=== PATIENT | female | born 1930 | race African-American/Black ===

== ENCOUNTER 2018-01-22 10:46 | Inpatient (IN) | payer MEDICARE ==
[~2018-01-22] VITALS: Ht 162.6 cm; Wt 93.9 kg
[2018-01-22] MEDS ORDERED: UNOBMED (11:02)
[2018-01-22 11:05] VITALS: BP 153/45
--- NOTE | 2018-01-22 11:11 | Emergency Room Report ---
History of Present Illness General Chief Complaint: Syncope Source: Patient Present Illness HPI Patient presents with complaints of episode of lightheadedness and dizziness Feeling near syncopal Denies any chest pain denies any back pain Patient reports that she had previous injury and she has not been able to ambulate She does have help who was at a house To help was already at the house today however after leaving patient was having increased discomfort moving with her walker Also had another episode of lightheadedness Denies any fevers denies any chest pain Patient presents by paramedics Allergies: Coded Allergies: No Known Allergies (Unverified , 01/22/18) Patient History Past Medical History: see triage record Pertinent Family History: none Now: No Reviewed Nursing Documentation: PMH: Agreed; PSxH: Agreed Nursing Documentation-PMH Hx Cardiac Problems: Yes - HF, kidney problems, high cholesterol Hx Hypertension: Yes Review of Systems All Other Systems: negative except mentioned in HPI Physical Exam Vital Signs Date Time Temp Pulse Resp B/P (MAP) Pulse Ox O2 Delivery O2 Flow Rate FiO2 01/22/18 10:47 98.1 80 16 153/45 98 Room Air Sp02 EP Interpretation: reviewed, normal General Appearance: no apparent distress Head: normocephalic, atraumatic Eyes: bilateral eye PERRL, bilateral eye EOMI ENT: hearing grossly normal, normal pharynx Neck: full range of motion, supple Respiratory: chest non-tender, lungs clear Cardiovascular #1: regular rate, rhythm Gastrointestinal: non tender, soft, no mass Musculoskeletal: other - Patient is not able to bear weight, however moving both feet equally, sensory is intact Neurologic: alert, oriented x3, responsive Skin: normal color, no rash Lymphatic: no adenopathy Medical Decision Making Diagnostic Impression: Primary Impression: Near syncope Additional Impressions: UTI (urinary tract infection) Weakness ER Course Patient is a fairly complex patient with multiple differential to consideration including but not limited to cardiac cardiopulmonary and vascular emergencies Patient's urine sample does show bacteria patient is treated for this thus far EKG and other blood work appropriate Given the patient's comorbidities and presentation will require further inpatient care Labs Test 01/22/18 11:23 01/22/18 11:58 White Blood Count 5.1 K/UL (4.8-10.8) Red Blood Count 4.26 M/UL (4.20-5.40) Hemoglobin 11.1 G/DL (12.0-16.0) Hematocrit 34.8 % (37.0-47.0) Mean Corpuscular Volume 82 FL (80-99) Mean Corpuscular Hemoglobin 26.2 PG (27.0-31.0) Mean Corpuscular Hemoglobin Concent 32.1 G/DL (32.0-36.0) Red Cell Distribution Width 13.9 % (11.6-14.8) Platelet Count 159 K/UL (150-450) Mean Platelet Volume 6.9 FL (6.5-10.1) Neutrophils (%) (Auto) 62.3 % (45.0-75.0) Lymphocytes (%) (Auto) 25.1 % (20.0-45.0) Monocytes (%) (Auto) 7.2 % (1.0-10.0) Eosinophils (%) (Auto) 4.4 % (0.0-3.0) Basophils (%) (Auto) 1.1 % (0.0-2.0) Sodium Level 142 MMOL/L (136-145) Potassium Level 4.7 MMOL/L (3.5-5.1) Chloride Level 109 MMOL/L (98-107) Carbon Dioxide Level 21 MMOL/L (21-32) Anion Gap 12 mmol/L (5-15) Blood Urea Nitrogen 31 mg/dL (7-18) Creatinine 1.4 MG/DL (0.55-1.30) Estimat Glomerular Filtration Rate mL/min (>60) Glucose Level 109 MG/DL (74-106) Calcium Level 8.3 MG/DL (8.5-10.1) Total Bilirubin 0.4 MG/DL (0.2-1.0) Aspartate Amino Transf (AST/SGOT) 24 U/L (15-37) Alanine Aminotransferase (ALT/SGPT) 9 U/L (12-78) Alkaline Phosphatase 75 U/L (46-116) Total Creatine Kinase 51 U/L (26-308) Creatine Kinase MB < 0.5 NG/ML (0.0-3.6) Creatine Kinase MB Relative Index 0.9 Troponin I 0.006 ng/mL (0.000-0.056) Pro-B-Type Natriuretic Peptide 2455 pg/mL (0-125) Total Protein 6.9 G/DL (6.4-8.2) Albumin 2.6 G/DL (3.4-5.0) Globulin 4.3 g/dL Albumin/Globulin Ratio 0.6 (1.0-2.7) Urine Color Pale yellow Urine Appearance Clear Urine pH 6 (4.5-8.0) Urine Specific [place] 1.010 (1.005-1.035) Urine Protein Negative (NEGATIVE) Urine Glucose (UA) Negative (NEGATIVE) Urine Ketones 1+ (NEGATIVE) Urine Blood 4+ (NEGATIVE) Urine Nitrite Negative (NEGATIVE) Urine Bilirubin Negative (NEGATIVE) Urine Urobilinogen Normal MG/DL (0.0-1.0) Urine Leukocyte Esterase 2+ (NEGATIVE) Urine RBC Tntc /HPF (0 - 2) Urine WBC 10-15 /HPF (0 - 2) Urine Squamous Epithelial Cells Moderate /LPF (NONE/OCC) Urine Bacteria Few /HPF (NONE) EKG Diagnostic Results Rate: normal Rhythm: NSR ST Segments: no acute changes Rhythm Strip Diag. Results EP Interpretation: yes Rate: 77 Rhythm: NSR, no PVC's, no ectopy Chest X-Ray Diagnostic Results Chest X-Ray Diagnostic Results : Chest X-Ray Ordered: Yes # of Views/Limited/Complete: 1 View Indication: Chest Pain EP Interpretation: Yes Interpretation: no consolidation, no effusion, no pneumothorax Impression: No acute disease Electronically Signed by: Scarlett Saxena DO Last Vital Signs Date Time Temp Pulse Resp B/P (MAP) Pulse Ox O2 Delivery O2 Flow Rate FiO2 01/22/18 11:05 98.1 80 16 153/45 98 Room Air Status: improved Disposition: ADMITTED INPATIENT Condition: Serious Scarlett Saxena DO Jan 22, 2018 11:11
[2018-01-22 11:34] LABS: BASOPHILS % (AUTO) 1.1 % (0.0-2.0); EOSINOPHILS % (AUTO) 4.4 % (0.0-3.0); HEMATOCRIT 34.8 % (37.0-47.0); HEMOGLOBIN 11.1 G/DL (12.0-16.0); LYMPHOCYTES % (AUTO) 25.1 % (20.0-45.0); MEAN CORPUSCULAR VOLUME 82 FL (80-99); MONOCYTES % (AUTO) 7.2 % (1.0-10.0); NEUTROPHILS % (AUTO) 62.3 % (45.0-75.0); PLATELET COUNT 159 K/UL (150-450); RED BLOOD COUNT 4.26 M/UL (4.20-5.40); RED CELL DISTRIBUTION WIDTH 13.9 % (11.6-14.8); WHITE BLOOD COUNT 5.1 K/UL (4.8-10.8)
[2018-01-22 11:44] LABS: ANION GAP 12 mmol/L (5-15); BLOOD UREA NITROGEN 31 mg/dL (7-18); CALCIUM 8.3 MG/DL (8.5-10.1); CARBON DIOXIDE 21 MMOL/L (21-32); CHLORIDE 109 MMOL/L (98-107); CREATININE 1.4 MG/DL (0.55-1.30); POTASSIUM 4.7 MMOL/L (3.5-5.1); SODIUM 142 MMOL/L (136-145)
[2018-01-22 11:57] LABS: ALANINE AMINOTRANSFERASE 9 U/L (12-78); ALBUMIN 2.6 G/DL (3.4-5.0); ALBUMIN/GLOBULIN RATIO 0.6 (1.0-2.7); ALKALINE PHOSPHATASE 75 U/L (46-116); ASPARTATE AMINO TRANSFERASE 24 U/L (15-37); BILIRUBIN,TOTAL 0.4 MG/DL (0.2-1.0); CKMB < 0.5 NG/ML (0.0-3.6); CREATINE KINASE 51 U/L (26-308)
--- NOTE | 2018-01-22 12:10 | Diagnostic Imaging Report ---
Indication: Chest pain Comparison: None A single view chest radiograph was obtained. Findings: No definite infiltrate or pulmonary vascular congestion identified. The heart is enlarged. The aorta is mildly enlarged consistent with atherosclerotic vascular disease. The bones are osteopenic. Impression: No acute disease
[2018-01-22 12:20] LABS: BILIRUBIN, URINE NEGATIVE (NEGATIVE); GLUCOSE, URINE (UA) NEGATIVE (NEGATIVE); KETONES,URINE 1+ (NEGATIVE); LEUKOCYTE ESTERASE ,URINE 2+ (NEGATIVE); NITRITE,URINE NEGATIVE (NEGATIVE)
[2018-01-22 12:21] LABS: APPEARANCE,URINE CLEAR; COLOR,URINE PALE YELLOW; PH,URINE 6 (4.5-8.0); PROTEIN,URINE NEGATIVE (NEGATIVE); UROBILINOGEN,URINE NORMAL MG/DL (0.0-1.0)
[2018-01-22] MEDS ORDERED: cefTRIAXone 1 GM in D5W 55 ML IVPB ONE (13:15)
[2018-01-22 13:55] VITALS: BP 153/50
[2018-01-22 15:47] VITALS: BP 130/45
[2018-01-22] MEDS ORDERED: traMADol 50mg tab ORAL PRN (17:09)
--- NOTE | 2018-01-22 18:18 | Cardiology Progress Note ---
Assessment/Plan Assessment/Plan The patient is seen and examined, full cardiology consult report is dictated. Objective Last 24 Hour Vital Signs Date Time Temp Pulse Resp B/P (MAP) Pulse Ox O2 Delivery O2 Flow Rate FiO2 01/22/18 16:00 57 01/22/18 15:47 97.0 60 20 130/45 (73) 100 01/22/18 14:51 Room Air 01/22/18 14:38 98.1 65 16 153/50 99 Room Air 01/22/18 13:55 98.1 65 16 153/50 99 Room Air 01/22/18 11:05 98.1 80 16 153/45 98 Room Air 01/22/18 11:02 80 16 Room Air 01/22/18 10:47 98.1 80 16 153/45 98 Room Air Laboratory Tests Test 01/22/18 11:23 01/22/18 11:58 White Blood Count 5.1 K/UL (4.8-10.8) Red Blood Count 4.26 M/UL (4.20-5.40) Hemoglobin 11.1 G/DL (12.0-16.0) L Hematocrit 34.8 % (37.0-47.0) L Mean Corpuscular Volume 82 FL (80-99) Mean Corpuscular Hemoglobin 26.2 PG (27.0-31.0) L Mean Corpuscular Hemoglobin Concent 32.1 G/DL (32.0-36.0) Red Cell Distribution Width 13.9 % (11.6-14.8) Platelet Count 159 K/UL (150-450) Mean Platelet Volume 6.9 FL (6.5-10.1) Neutrophils (%) (Auto) 62.3 % (45.0-75.0) Lymphocytes (%) (Auto) 25.1 % (20.0-45.0) Monocytes (%) (Auto) 7.2 % (1.0-10.0) Eosinophils (%) (Auto) 4.4 % (0.0-3.0) H Basophils (%) (Auto) 1.1 % (0.0-2.0) Sodium Level 142 MMOL/L (136-145) Potassium Level 4.7 MMOL/L (3.5-5.1) Chloride Level 109 MMOL/L (98-107) H Carbon Dioxide Level 21 MMOL/L (21-32) Anion Gap 12 mmol/L (5-15) Blood Urea Nitrogen 31 mg/dL (7-18) H Creatinine 1.4 MG/DL (0.55-1.30) H Estimat Glomerular Filtration Rate mL/min (>60) Glucose Level 109 MG/DL (74-106) H Calcium Level 8.3 MG/DL (8.5-10.1) L Total Bilirubin 0.4 MG/DL (0.2-1.0) Aspartate Amino Transf (AST/SGOT) 24 U/L (15-37) Alanine Aminotransferase (ALT/SGPT) 9 U/L (12-78) L Alkaline Phosphatase 75 U/L (46-116) Total Creatine Kinase 51 U/L (26-308) Creatine Kinase MB < 0.5 NG/ML (0.0-3.6) Creatine Kinase MB Relative Index 0.9 Troponin I 0.006 ng/mL (0.000-0.056) Pro-B-Type Natriuretic Peptide 2455 pg/mL (0-125) H Total Protein 6.9 G/DL (6.4-8.2) Albumin 2.6 G/DL (3.4-5.0) L Globulin 4.3 g/dL Albumin/Globulin Ratio 0.6 (1.0-2.7) L Urine Color Pale yellow Urine Appearance Clear Urine pH 6 (4.5-8.0) Urine Specific [place] 1.010 (1.005-1.035) Urine Protein Negative (NEGATIVE) Urine Glucose (UA) Negative (NEGATIVE) Urine Ketones 1+ (NEGATIVE) H Urine Blood 4+ (NEGATIVE) H Urine Nitrite Negative (NEGATIVE) Urine Bilirubin Negative (NEGATIVE) Urine Urobilinogen Normal MG/DL (0.0-1.0) Urine Leukocyte Esterase 2+ (NEGATIVE) H Urine RBC Tntc /HPF (0 - 2) H Urine WBC 10-15 /HPF (0 - 2) H Urine Squamous Epithelial Cells Moderate /LPF (NONE/OCC) H Urine Bacteria Few /HPF (NONE) Christ Matthews MD Jan 22, 2018 18:18
[2018-01-22] MEDS ORDERED: Montelukast 10mg tablet ORAL SCH (18:30)
[2018-01-22] MEDS ORDERED: MONTELUKAST SOD10 MG ORAL (19:18)
[2018-01-22] MEDS ORDERED: ASPIRIN81 M3 PO (19:18)
[2018-01-22] MEDS ORDERED: TRAMADOL HCL50 MG ORAL (19:18)
[2018-01-22] MEDS ORDERED: OMEPRAZOLE20 M2 ORAL (19:18)
[2018-01-22 20:00] VITALS: BP 105/37
--- NOTE | 2018-01-22 21:15 | Consultation ---
DATE OF CONSULTATION: 01/22/2018 CARDIOLOGY CONSULTATION CONSULTING PHYSICIAN: Christ Matthews M.D. REFERRING PHYSICIAN: Aaron Ocampo M.D. REASON FOR CONSULTATION: Management of near-syncope episode. HISTORY OF PRESENT ILLNESS: The patient is a very delightful 87-year-old lady, who presents to the hospital after she feels dizzy and lightheaded and continue: 1. Nitroglycerin tablet recommended by a nurse, which bottomed down her blood pressure and had a blackout episode. At the time of arrival to this hospital, she denied any chest pain or shortness of breath. She normally walks at home with a walker. She was told 7 years ago by another banquet lead that she has had congestive heart failure. 2. She claims that she used to take furosemide in the past. She denies any coronary artery disease or cardiac arrhythmias. PAST MEDICAL HISTORY: 1. History of congestive heart failure. 2. History of gastroesophageal reflux. 3. History of hyperlipidemia. 4. History of chronic kidney disease. 5. History of hypertension. ALLERGIES: No known drug allergies. MEDICATIONS: Occasional omeprazole, nitroglycerin tablet as needed, and used to take furosemide in the past, currently not taking any medication. List of medications, none. FAMILY HISTORY: No premature coronary artery disease in the first-degree relatives. SOCIAL HISTORY: Denies any tobacco, alcohol, or illicit drug use. REVIEW OF SYSTEMS: HEENT: Denies any headache, but had lightheadedness and dizziness. CONSTITUTIONAL: Generalized weakness, but no fever, chills, or night sweats. CARDIOVASCULAR: Denies any chest pain, shortness of breath, PND, orthopnea, leg swelling, or palpitation. She had a near syncopal event. PULMONARY: Denies any cough, hemoptysis, or wheezing. GASTROINTESTINAL: Denies any nausea, vomiting, diarrhea, constipation, abdominal pain, or GI bleed. GENITOURINARY: Denies any hematuria, dysuria, or incontinence. NEUROLOGY: Denies any motor dysfunction, signs of lateralization, sensory deficit, or altered speech. PHYSICAL EXAMINATION: VITAL SIGNS: Blood pressure at the time of arrival to the hospital was blood pressure 153/45, pulse 80, respirations 16, O2 saturation 98% on room air, and temperature 98.1 degrees Fahrenheit. GENERAL: The patient is a very unfortunate 87-year-old lady, in no apparent respiratory distress. Alert and oriented x4. HEENT: Atraumatic and normocephalic. Anicteric. Pupils are equal, round, and reactive to light and accommodation. Extraocular muscles intact. NECK: JVP less than 5 cm. No carotid bruit. Carotid upstroke is 2+ bilaterally. CARDIOVASCULAR: Normal S1 and S2, irregular at times. A 2/6 midsystolic murmur at the left sternal border. PMI is at fourth intercostal space in the midclavicular line. LUNGS: Clear to auscultation bilaterally. ABDOMEN: Soft, nontender, and nondistended. No hepatosplenomegaly. Positive bowel sounds. EXTREMITIES: No evidence of edema, clubbing, or cyanosis. There is 1+ bilateral lower extremity edema. LABORATORY FINDINGS: WBC 5.1, hemoglobin 11.1, hematocrit of 34.8, and platelet count is 159,000. Sodium 142, potassium is 4.7, chloride 109, bicarbonate 21, BUN 31, creatinine 1.4, glucose 109, calcium is 8.3, troponin I 0.006, and proBNP was 2455. DIAGNOSTIC DATA: Chest x-ray showed no acute cardiopulmonary disease. A 12-lead electrocardiogram shows sinus rhythm at a rate of 70 with arm lead reversal. No acute ST and T-wave abnormalities and borderline QT prolongation. ASSESSMENT AND PLAN: The is a very unfortunate 87-year-old lady, was seen in Cardiology consultation at request of Dr. Ocampo. 1. Near syncope. It could be a combination of factors, obviously nitroglycerin had some role in dropping her blood pressure. 2. Vasovagal or hypovolemia, could also be responsible for her presyncope. A 12-lead electrocardiogram does not show any acute ST or T-wave abnormalities. Laboratory finding also mostly confirmation of her prerenal azotemia and possible hypovolemia with a BUN/creatinine ratio above 20. Given the fact that the beta-natriuretic peptide is elevated. The patient was started on furosemide. We will ultimately need 2D echocardiography for assessment of LV systolic and diastolic function to address hemodynamics more efficiently. 3. History of hypertension. I would believe that the patient will probably benefit from a combination of hydrochlorothiazide and triamterene. 4. History of chronic kidney disease. I will switch the patient to thiazide diuretic from the loop diuretic and watch her creatinine. This will be done once the patient's echocardiography rules out heart failure. I would like to thank, Dr. Ocampo, for allowing me to participate in the care of this patient. Christ Matthews M.D. DR: RADHA JOB#: [id number] CC:
--- NOTE | 2018-01-22 23:06 | Consultation ---
History of Present Illness General Date patient seen: Jan 22, 2018 Chief Complaint: Syncope Present Illness HPI 87-year-old female, who presents to the hospital after she feels dizzy and lightheaded the pt has anxiety due to stressors at home. the pts daughter and grandson and the pt stated that she feels that she is not comfortable in her own house. the pt at times is worried about her future. the pt was seen by sw. the pt has mild depression Allergies: Coded Allergies: No Known Allergies (Unverified , 01/22/18) Medication History Scheduled Aspirin (Aspirin), 81 MG PO DAILY, (Reported) Montelukast Sodium* (Montelukast Sodium*), 10 MG ORAL DAILY, (Reported) Omeprazole (Omeprazole), 20 MG ORAL DAILY, (Reported) Scheduled PRN Tramadol Hcl* (Ultram*), 50 MG ORAL Q8HR PRN for For Pain, (Reported) Miscellaneous Medications Unable to Obtain Medications (Unable To Obtain Meds), (Reported) Patient History History Provided By: Patient, Medical Record, PMD Healthcare decision maker Resuscitation status Full Code Advanced Directive on File Past Medical/Surgical History Past Medical/Surgical History: (1) Weakness (2) UTI (urinary tract infection) (3) Near syncope (4) ESRD (end stage renal disease) on dialysis (5) PVD (peripheral vascular disease) (6) 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 Review of Systems Psychiatric: Reports: anxiety, depressed feelings, emotional problems Physical Exam General Appearance: no apparent distress, alert Neurologic: oriented x 3, responsive, depressed affect Last 24 Hour Vital Signs Date Time Temp Pulse Resp B/P (MAP) Pulse Ox O2 Delivery O2 Flow Rate FiO2 01/22/18 21:00 Room Air 01/22/18 20:00 96.6 70 16 105/37 (59) 95 01/22/18 20:00 70 01/22/18 16:00 57 01/22/18 15:47 97.0 60 20 130/45 (73) 100 01/22/18 14:51 Room Air 01/22/18 14:38 98.1 65 16 153/50 99 Room Air 01/22/18 13:55 98.1 65 16 153/50 99 Room Air 01/22/18 11:05 98.1 80 16 153/45 98 Room Air 01/22/18 11:02 80 16 Room Air 01/22/18 10:47 98.1 80 16 153/45 98 Room Air Laboratory Tests Test 01/22/18 11:23 01/22/18 11:58 White Blood Count 5.1 K/UL (4.8-10.8) Red Blood Count 4.26 M/UL (4.20-5.40) Hemoglobin 11.1 G/DL (12.0-16.0) L Hematocrit 34.8 % (37.0-47.0) L Mean Corpuscular Volume 82 FL (80-99) Mean Corpuscular Hemoglobin 26.2 PG (27.0-31.0) L Mean Corpuscular Hemoglobin Concent 32.1 G/DL (32.0-36.0) Red Cell Distribution Width 13.9 % (11.6-14.8) Platelet Count 159 K/UL (150-450) Mean Platelet Volume 6.9 FL (6.5-10.1) Neutrophils (%) (Auto) 62.3 % (45.0-75.0) Lymphocytes (%) (Auto) 25.1 % (20.0-45.0) Monocytes (%) (Auto) 7.2 % (1.0-10.0) Eosinophils (%) (Auto) 4.4 % (0.0-3.0) H Basophils (%) (Auto) 1.1 % (0.0-2.0) Sodium Level 142 MMOL/L (136-145) Potassium Level 4.7 MMOL/L (3.5-5.1) Chloride Level 109 MMOL/L (98-107) H Carbon Dioxide Level 21 MMOL/L (21-32) Anion Gap 12 mmol/L (5-15) Blood Urea Nitrogen 31 mg/dL (7-18) H Creatinine 1.4 MG/DL (0.55-1.30) H Estimat Glomerular Filtration Rate mL/min (>60) Glucose Level 109 MG/DL (74-106) H Calcium Level 8.3 MG/DL (8.5-10.1) L Total Bilirubin 0.4 MG/DL (0.2-1.0) Aspartate Amino Transf (AST/SGOT) 24 U/L (15-37) Alanine Aminotransferase (ALT/SGPT) 9 U/L (12-78) L Alkaline Phosphatase 75 U/L (46-116) Total Creatine Kinase 51 U/L (26-308) Creatine Kinase MB < 0.5 NG/ML (0.0-3.6) Creatine Kinase MB Relative Index 0.9 Troponin I 0.006 ng/mL (0.000-0.056) Pro-B-Type Natriuretic Peptide 2455 pg/mL (0-125) H Total Protein 6.9 G/DL (6.4-8.2) Albumin 2.6 G/DL (3.4-5.0) L Globulin 4.3 g/dL Albumin/Globulin Ratio 0.6 (1.0-2.7) L Urine Color Pale yellow Urine Appearance Clear Urine pH 6 (4.5-8.0) Urine Specific [place] 1.010 (1.005-1.035) Urine Protein Negative (NEGATIVE) Urine Glucose (UA) Negative (NEGATIVE) Urine Ketones 1+ (NEGATIVE) H Urine Blood 4+ (NEGATIVE) H Urine Nitrite Negative (NEGATIVE) Urine Bilirubin Negative (NEGATIVE) Urine Urobilinogen Normal MG/DL (0.0-1.0) Urine Leukocyte Esterase 2+ (NEGATIVE) H Urine RBC Tntc /HPF (0 - 2) H Urine WBC 10-15 /HPF (0 - 2) H Urine Squamous Epithelial Cells Moderate /LPF (NONE/OCC) H Urine Bacteria Few /HPF (NONE) Height (Feet): 5 Height (Inches): 4.00 Weight (Pounds): 170 Medications Current Medications Medications (Trade) Dose Ordered Sig/Arturo Route PRN Reason Start Time Stop Time Status Last Admin Dose Admin Acetaminophen (Tylenol) 650 mg Q4H PRN ORAL Fever/Headache/Mild Pain 01/22/18 17:07 02/21/18 17:06 Aspirin (ASA) 81 mg DAILY ORAL 01/23/18 09:00 02/22/18 08:59 Ceftriaxone Sodium 1 gm/ Dextrose 55 ml @ 110 mls/hr Q24H IVPB 01/23/18 14:00 01/30/18 13:59 Furosemide (Lasix) 20 mg DAILY IV 01/23/18 09:00 02/22/18 08:59 Montelukast Sodium (Singulair) 10 mg QPM ORAL 01/23/18 16:30 02/22/18 16:29 Pantoprazole (Protonix) 40 mg DAILY ORAL 01/23/18 09:00 02/22/18 08:59 Potassium Chloride (K-Dur) 10 meq DAILY ORAL 01/23/18 09:00 02/22/18 08:59 Tramadol HCl (Ultram) 50 mg Q8H PRN ORAL For Moderate Pain(4-6) 01/22/18 17:09 01/29/18 17:08 Assessment/Plan Problem List: (1) Anxiety and depression ICD Codes: F41.9 - Anxiety disorder, unspecified; F32.9 - Major depressive disorder, single episode, unspecified SNOMED: [id number], [id number] Assessment/Plan Ativan prn provided merlin/Nichole Ayala MD Jan 22, 2018 23:06
[2018-01-23] VITALS: BP 125/47
--- NOTE | 2018-01-23 03:30 | History and Physical Report ---
DATE OF ADMISSION: 01/22/2018 OHISTORY OF PRESENT ILLNESS: This is an 87-year-old female, very nice patient, who came to the emergency room for having dizziness and syncopal episode and was about to pass out at home and called 911 by herself. The patient was found to have urinary tract infection as well as CHF. The patient is currently alert and awake, complaining having cough with a lot of sputum production. She had no chest pain. No palpitation. When the patient had dizziness spell and about to pass out, she took nitroglycerin by recommendation of retreating nurse for home health. The patient is currently alert and awake, mild short of breath, has some cough. No fever. No chills. No chest pain. No palpitation. PAST MEDICAL HISTORY: Significant for CHF, COPD, and GERD. MEDICATIONS: She is taking aspirin, Lasix, Singulair, Protonix, potassium chloride, and tramadol. PHYSICAL EXAMINATION: GENERAL: This is an elderly female who is currently in the bed, looks comfortable. CURRENT VITAL SIGNS: Blood pressure is 130/45, pulse 60s, respirations 20s, and temperature 97. SKIN: Good skin turgor. HEENT: Mild JVD. CHEST: Bilateral few crackles. CARDIOVASCULAR: Regular rhythm. No gallop. No murmur. ABDOMEN: Soft. Positive bowel sounds. EXTREMITIES: She has 1+ edema. GENITOURINARY: Deferred. LABORATORY DATA: White counts are 5.1, hemoglobin is 11, hematocrit 35, and platelets are 159,000. Chemistry panel, sodium 142, potassium 4.7, BUN 31, creatinine 1.4, and glucose 109. Troponin 0.06. BNP was 2455. Her urine test is showing 2+ leukocyte esterase, urine rbc TNTC, squamous cells moderate. ASSESSMENT: 1. Syncopal episode. 2. Dizziness. 3. UTI. 4. CHF. 5. Probably acute bronchitis, rule out pneumonia. PLAN: We will admit her on telemetry bed. We will start Lasix. Start antibiotics. Bronchodilator treatments. PT and OT. Consider Cardiology consult. Add 2D echo. DVT prophylaxis and . Aaron Ocampo M.D. DR: SARAH JOB#: [id number] CC:
[2018-01-23 04:00] VITALS: BP 128/56
[2018-01-23 07:56] LABS: FERRITIN 938 NG/ML (8-388)
[2018-01-23 08:00] VITALS: BP 136/58
[2018-01-23 08:12] LABS: % IRON SATURATION 34 % (15-50); IRON 40 ug/dL (50-175); TOTAL IRON BINDING CAPACITY 116 ug/dL (250-450)
[2018-01-23] MEDS: Aspirin Baby 81mg ORAL SCH (08:29)
[2018-01-23 08:56] LABS: HEMATOCRIT 30.9 % (37.0-47.0); HEMOGLOBIN 10.3 G/DL (12.0-16.0); MEAN CORPUSCULAR VOLUME 81 FL (80-99); PLATELET COUNT 155 K/UL (150-450); RED BLOOD COUNT 3.82 M/UL (4.20-5.40); RED CELL DISTRIBUTION WIDTH 13.6 % (11.6-14.8); WHITE BLOOD COUNT 5.8 K/UL (4.8-10.8)
[2018-01-23 12:00] VITALS: BP_SYST 124; BP_DIAS 4; BP_DIAS 54
--- NOTE | 2018-01-23 14:21 | Consultation ---
Consult Note Consult Note Hematology Oncology Consult Note DOS: 01/23/18 RFC: Anemia ari MASTERSON MD: Aaron Ocampo ID 87 y old very plesant female presents with complaints of episode of lightheadedness and dizziness Feeling near syncopal Denies any chest pain denies any back pain Patient reports that she had previous injury and she has not been able to ambulate She does have help who was at a house To help was already at the house today however after leaving patient was having increased discomfort moving with her walker Also had another episode of lightheadedness Denies any fevers denies any chest pain Patient presents by paramedics Seen by cardiology and psych and heme was consulted for anemia All No Known Allergies (Unverified , 01/22/18) Past Medical History: see triage record Pertinent Family History: none Now: No Reviewed Nursing Documentation: PMH: Agreed; PSxH: Agreed Hx Cardiac Problems: Yes - HF, kidney problems, high cholesterol Hx Hypertension: Yes ER ROS - General Review of Systems All Other Systems: negative except mentioned in HPI ER Physical Exam - General Physical Exam Vital Signs Last 24 Hour Vital Signs Date Time Temp Pulse Resp B/P (MAP) Pulse Ox O2 Delivery O2 Flow Rate FiO2 01/23/18 09:00 Room Air 01/23/18 08:00 73 01/23/18 08:00 98.4 75 16 136/58 (84) 99 01/23/18 04:00 97.5 76 17 128/56 (80) 97 01/23/18 04:00 72 01/23/18 00:00 82 01/23/18 00:00 97.7 68 17 125/47 (73) 97 01/22/18 21:00 Room Air 01/22/18 20:00 96.6 70 16 105/37 (59) 95 01/22/18 20:00 70 01/22/18 16:00 57 01/22/18 15:47 97.0 60 20 130/45 (73) 100 01/22/18 14:51 Room Air 01/22/18 14:38 98.1 65 16 153/50 99 Room Air Sp02 EP Interpretation: reviewed General Appearance: no apparent distress Head: normocephalic, atraumatic Eyes: bilateral eye PERRL ENT: hearing grossly normal, normal pharynx Neck: full range of motion, supple Respiratory: chest non-tender, lungs clear Cardiovascular: regular rate, rhythm Gastrointestinal: non tender, soft, no mass Musculoskeletal: other - Patient is not able to bear weight Neurologic: alert, oriented x3, responsive Skin: normal color, no rash Lymphatic: no adenopathy Laboratory Tests Test 01/23/18 06:46 White Blood Count 5.8 K/UL (4.8-10.8) Red Blood Count 3.82 M/UL (4.20-5.40) L Hemoglobin 10.3 G/DL (12.0-16.0) L Hematocrit 30.9 % (37.0-47.0) L Mean Corpuscular Volume 81 FL (80-99) Mean Corpuscular Hemoglobin 26.9 PG (27.0-31.0) L Mean Corpuscular Hemoglobin Concent 33.2 G/DL (32.0-36.0) Red Cell Distribution Width 13.6 % (11.6-14.8) Platelet Count 155 K/UL (150-450) Mean Platelet Volume 7.3 FL (6.5-10.1) Neutrophils (%) (Auto) % (45.0-75.0) Lymphocytes (%) (Auto) % (20.0-45.0) Monocytes (%) (Auto) % (1.0-10.0) Eosinophils (%) (Auto) % (0.0-3.0) Basophils (%) (Auto) % (0.0-2.0) Differential Total Cells Counted 100 Neutrophils % (Manual) 62 % (45-75) Lymphocytes % (Manual) 24 % (20-45) Monocytes % (Manual) 9 % (1-10) Eosinophils % (Manual) 5 % (0-3) H Basophils % (Manual) 0 % (0-2) Band Neutrophils 0 % (0-8) Other Cell Type Pathologist comment Platelet Estimate Adequate Platelet Morphology Normal Hypochromasia 1+ Anisocytosis 1+ Reticulocyte Count 1.6 % (0.0-2.0) Sickle Cell Screen Pending Fibrinogen 478 mg/dL (200-400) H Uric Acid 8.9 MG/DL (2.6-7.2) H Iron Level 40 ug/dL (50-175) L Total Iron Binding Capacity 116 ug/dL (250-450) L Percent Iron Saturation 34 % (15-50) Unsaturated Iron Binding 76 ug/dL (112-346) L Ferritin 938 NG/ML (8-388) H Troponin I 0.007 ng/mL (0.000-0.056) Pro-B-Type Natriuretic Peptide 1862 pg/mL (0-125) H Vitamin B12 Level 413 PG/ML (193-986) Folate 11.9 NG/ML (8.6-58.9) Homocystine Pending Thyroid Stimulating Hormone (TSH) 1.899 uiU/mL (0.358-3.740) Assessment and Recs: # Anemia of chronic disease -- anemia panel has been reviewed and ferritin >900 , iron is low and % sat low as well --> peripheral smear has been reviewed as well --> trend cbc daily as needed --> does not require iron or epo at this time --> hgb goal >7 # KIM on CKD --> meds have been changed, off thiazide now # Near syncope -- potentially related to meds v underlying cardiac disorder --> as per cards recs # UTI (urinary tract infection) - on abx # Weakness Greatly appreciate consultation! Omari Machuca MD Jan 23, 2018 14:21
[2018-01-23] MEDS: cefTRIAXone 1 GM in D5W 55 ML IVPB SCH (14:46)
--- NOTE | 2018-01-23 14:55 | Cardiology Report ---
APPROVED REPORT EXAM: Two-dimensional and M-mode echocardiogram with Doppler and color Doppler. INDICATION Syncope M-Mode DIMENSIONS IVSd1.6 (0.7-1.1cm)Left Atrium (MM)3.8 (1.6-4.0cm) LVDd5.5 (3.5-5.6cm)Aortic Root2.9 (2.0-3.7cm) PWd1.4 (0.7-1.1cm)Aortic Cusp Exc.1.4 (1.5-2.0cm) IVSs2.1 cm LVDs3.4 (2.5-4.0cm) PWs1.9 cm Normal left ventricular chamber size, systolic function and wall motion. Left ventricular ejection fraction estimated to be 55-60 %. Mild left ventricular hypertrophy by 2-D. Trivial pericardial effusion. All other cardiac chamber sizes are within normal limits. Heavily Focal aortic valve calcification opening nto adequately seen however appears restricted Thickened mitral valve leaflets with normal excursion. Mitral annulus and aortic root calcification. Normal pulmonic valve structure. Normal tricuspid valve structure. IVC dilated at size 2.0 cm without physiologic collapse, suggestive to increase RA pressure . A color flow and spectral Doppler study was performed and revealed: Mild aortic insufficiency .Peak gradient of 16 mmhg adn mean gradient of 7 mmhg is recorded across the aortic valve , however this may be an underestimation of the degree of aortic stenosis Trace mitral regurgitation. Mitral diastolic velocities suggest reduced left ventricular relaxation c/w mild LV diastolic dysfunction (Grade I ). Trace tricuspid regurgitation. Tricuspid systolic velocities suggests peak right ventricular systolic pressure of25 mmHg. No Pulmonic regurgitation present.
--- NOTE | 2018-01-23 15:00 | Cardiology Report ---
APPROVED REPORT EKG Measurement Heart [id number] Suspect arm lead reversal, interpretation assumes no reversal Normal sinus rhythm Lateral infarct, age undetermined Abnormal ECG
[2018-01-23 16:00] VITALS: BP 143/64
[2018-01-23] MEDS: Montelukast 10mg tablet ORAL SCH (16:50)
[2018-01-23 20:00] VITALS: BP 129/46
--- NOTE | 2018-01-23 22:48 | Cardiology Progress Note ---
Assessment/Plan Assessment/Plan 1. Near syncope likely due to hypotensive effects of nitroglycerin. 12-lead electrocardiogram does not show any acute ST or T-wave abnormalities. 2 echo reveals normal LVEF with normal intracardiac filling pressure, will discontinue lasix. 2. History of hypertension, start hydrochlorothiazide and triamterene. 3. History of chronic kidney disease switch to a thiazide diuretic from the loop diuretic. Subjective Subjective Sinus rhythm at rate of 62. Objective Last 24 Hour Vital Signs Date Time Temp Pulse Resp B/P (MAP) Pulse Ox O2 Delivery O2 Flow Rate FiO2 01/23/18 20:00 62 01/23/18 20:00 98.1 62 22 129/46 (73) 99 01/23/18 16:00 71 01/23/18 16:00 97.1 65 16 143/64 (90) 100 01/23/18 12:00 97.3 65 16 124/54 (77) 100 01/23/18 12:00 66 01/23/18 09:00 Room Air 01/23/18 08:00 73 01/23/18 08:00 98.4 75 16 136/58 (84) 99 01/23/18 04:00 97.5 76 17 128/56 (80) 97 01/23/18 04:00 72 01/23/18 00:00 82 01/23/18 00:00 97.7 68 17 125/47 (73) 97 Intake and Output 01/22/18 01/23/18 18:59 06:59 Intake Total 150 ml Output Total 0 ml 150 ml Balance 150 ml -150 ml Intake Oral 150 ml Output Urine Total 0 ml 150 ml # Voids 2 2D Echo: LVEF 55%,Grade I LVDD, trivial Pericard.effusion, Mild LVH, RVSP 25 mmHg,UT Laboratory Tests Test 01/23/18 06:46 White Blood Count 5.8 K/UL (4.8-10.8) Red Blood Count 3.82 M/UL (4.20-5.40) L Hemoglobin 10.3 G/DL (12.0-16.0) L Hematocrit 30.9 % (37.0-47.0) L Mean Corpuscular Volume 81 FL (80-99) Mean Corpuscular Hemoglobin 26.9 PG (27.0-31.0) L Mean Corpuscular Hemoglobin Concent 33.2 G/DL (32.0-36.0) Red Cell Distribution Width 13.6 % (11.6-14.8) Platelet Count 155 K/UL (150-450) Mean Platelet Volume 7.3 FL (6.5-10.1) Neutrophils (%) (Auto) % (45.0-75.0) Lymphocytes (%) (Auto) % (20.0-45.0) Monocytes (%) (Auto) % (1.0-10.0) Eosinophils (%) (Auto) % (0.0-3.0) Basophils (%) (Auto) % (0.0-2.0) Differential Total Cells Counted 100 Neutrophils % (Manual) 62 % (45-75) Lymphocytes % (Manual) 24 % (20-45) Monocytes % (Manual) 9 % (1-10) Eosinophils % (Manual) 5 % (0-3) H Basophils % (Manual) 0 % (0-2) Band Neutrophils 0 % (0-8) Other Cell Type Pathologist comment Platelet Estimate Adequate Platelet Morphology Normal Hypochromasia 1+ Anisocytosis 1+ Reticulocyte Count 1.6 % (0.0-2.0) Sickle Cell Screen Pending Fibrinogen 478 mg/dL (200-400) H Uric Acid 8.9 MG/DL (2.6-7.2) H Iron Level 40 ug/dL (50-175) L Total Iron Binding Capacity 116 ug/dL (250-450) L Percent Iron Saturation 34 % (15-50) Unsaturated Iron Binding 76 ug/dL (112-346) L Ferritin 938 NG/ML (8-388) H Troponin I 0.007 ng/mL (0.000-0.056) Pro-B-Type Natriuretic Peptide 1862 pg/mL (0-125) H Vitamin B12 Level 413 PG/ML (193-986) Folate 11.9 NG/ML (8.6-58.9) Homocystine Pending Thyroid Stimulating Hormone (TSH) 1.899 uiU/mL (0.358-3.740) Microbiology Date/Time Source Procedure Growth Status 01/22/18 11:58 Urine,Clean Catch Urine Culture - Preliminary NO GROWTH Resulted Objective HEENT: Atraumatic and normocephalic. Anicteric. Pupils are equal, round, and reactive to light and accommodation. Extraocular muscles intact. NECK: JVP less than 5 cm. No carotid bruit. Carotid upstroke is 2+ bilaterally. CARDIOVASCULAR: Normal S1 and S2, irregular at times. A 2/6 midsystolic murmur at the left sternal border. PMI is at fourth intercostal space in the midclavicular line. LUNGS: Clear to auscultation bilaterally. ABDOMEN: Soft, nontender, and nondistended. No hepatosplenomegaly. Positive bowel sounds. EXTREMITIES: No evidence of edema, clubbing, or cyanosis. There is 1+ bilateral lower extremity edema. Christ Matthews MD Jan 23, 2018 22:48
[2018-01-23] MEDS ORDERED: Zolpidem 5mg tab ORAL PRN (23:00)
--- NOTE | 2018-01-23 23:12 | General Progress Note ---
Assessment/Plan Problem List: (1) Anxiety and depression ICD Codes: F41.9 - Anxiety disorder, unspecified; F32.9 - Major depressive disorder, single episode, unspecified SNOMED: 92827606, 176281312 Status: stable Assessment/Plan ativan prn provided st/ro Subjective Date patient seen: Jan 23, 2018 Neurologic/Psychiatric: Reports: anxiety Allergies: Coded Allergies: No Known Allergies (Unverified , 01/22/18) Objective Last 24 Hour Vital Signs Date Time Temp Pulse Resp B/P (MAP) Pulse Ox O2 Delivery O2 Flow Rate FiO2 01/23/18 20:00 62 01/23/18 20:00 98.1 62 22 129/46 (73) 99 01/23/18 16:00 71 01/23/18 16:00 97.1 65 16 143/64 (90) 100 01/23/18 12:00 97.3 65 16 124/54 (77) 100 01/23/18 12:00 66 01/23/18 09:00 Room Air 01/23/18 08:00 73 01/23/18 08:00 98.4 75 16 136/58 (84) 99 01/23/18 04:00 97.5 76 17 128/56 (80) 97 01/23/18 04:00 72 01/23/18 00:00 82 01/23/18 00:00 97.7 68 17 125/47 (73) 97 Intake and Output 01/22/18 01/23/18 18:59 06:59 Intake Total 150 ml Output Total 0 ml 150 ml Balance 150 ml -150 ml Intake Oral 150 ml Output Urine Total 0 ml 150 ml # Voids 2 Laboratory Tests 01/23/18 06:46: White Blood Count 5.8, Red Blood Count 3.82L, Hemoglobin 10.3L, Hematocrit 30.9L , Mean Corpuscular Volume 81, Mean Corpuscular Hemoglobin 26.9L, Mean Corpuscular Hemoglobin Concent 33.2, Red Cell Distribution Width 13.6, Platelet Count 155, Mean Platelet Volume 7.3, Neutrophils (%) (Auto) , Lymphocytes (%) ( Auto) , Monocytes (%) (Auto) , Eosinophils (%) (Auto) , Basophils (%) (Auto) , Differential Total Cells Counted 100, Neutrophils % (Manual) 62, Lymphocytes % ( Manual) 24, Monocytes % (Manual) 9, Eosinophils % (Manual) 5H, Basophils % ( Manual) 0, Band Neutrophils 0, Other Cell Type Pathologist comment, Platelet Estimate Adequate, Platelet Morphology Normal, Hypochromasia 1+, Anisocytosis 1+ , Reticulocyte Count 1.6, Sickle Cell Screen [Pending], Fibrinogen 478H, Uric Acid 8.9H, Iron Level 40L, Total Iron Binding Capacity 116L, Percent Iron Saturation 34, Unsaturated Iron Binding 76L, Ferritin 938H, Troponin I 0.007, Pro-B-Type Natriuretic Peptide 1862H, Vitamin B12 Level 413, Folate 11.9, Homocystine [Pending], Thyroid Stimulating Hormone (TSH) 1.899 Height (Feet): 5 Height (Inches): 4.00 Weight (Pounds): 170 General Appearance: no apparent distress, alert Neurologic: oriented x 3, responsive, normal mood/affect Nichole Fox MD Jan 23, 2018 23:12
[2018-01-23] MEDS ORDERED: LORazepam 0.5mg tab ORAL PRN (23:15)
[2018-01-24] VITALS (7 sets, daily range): BP systolic 134–156; BP diastolic 48–77
--- NOTE | 2018-01-24 03:30 | Progress Note ---
DATE: 01/23/2018 SUBJECTIVE: This is an elderly female who is currently in the bed, comfortable, generalized weakness, came with weakness, UTI, end-stage renal disease, on dialysis, and gangrenous spleen. PAST MEDICAL HISTORY: Significant for end-stage renal disease, hypertension, diabetes, and peripheral vascular disease. MEDICATIONS: See the list. PHYSICAL EXAMINATION: GENERAL: This is an elderly female who is currently awake. VITAL SIGNS: Blood pressure is 143/64, pulse 65, respirations 16, and temperature 97.6. SKIN: Good skin turgor. HEENT: NAD. CHEST: Bilateral few crackles. CARDIOVASCULAR: Regular rhythm. No gallop. No murmur. ABDOMEN: Soft. EXTREMITIES: CCE. NEUROLOGICAL: Generalized weakness. LABORATORY DATA: White counts are 5.8, hemoglobin 10, hematocrit 33, and platelets are normal. Chemistry panel, troponin 0.007. BNP 1862. ASSESSMENT: 1. Syncope. 2. Hypertension. 3. CHF. 4. COPD. PLAN: Continue current treatment, Singulair, ceftriaxone. Continue Lasix, aspirin, PPI, and continue tramadol. Aaron Ocampo M.D. DR: WILLIAM JOB#: [id number] CC:
[2018-01-24 05:42] LABS: BASOPHILS % (AUTO) 1.1 % (0.0-2.0); EOSINOPHILS % (AUTO) 5.6 % (0.0-3.0); HEMATOCRIT 30.2 % (37.0-47.0); LYMPHOCYTES % (AUTO) 32.8 % (20.0-45.0); MEAN CORPUSCULAR VOLUME 81 FL (80-99); MONOCYTES % (AUTO) 8.9 % (1.0-10.0); NEUTROPHILS % (AUTO) 51.5 % (45.0-75.0); PLATELET COUNT 143 K/UL (150-450); RED BLOOD COUNT 3.73 M/UL (4.20-5.40); RED CELL DISTRIBUTION WIDTH 13.4 % (11.6-14.8); WHITE BLOOD COUNT 5.6 K/UL (4.8-10.8)
--- NOTE | 2018-01-24 05:59 | General Progress Note ---
Assessment/Plan Assessment/Plan # Anemia of chronic disease -- anemia panel has been reviewed and ferritin >900 , iron is low and % sat low as well --> peripheral smear has been reviewed as well --> trend cbc daily as needed --> does not require iron or epo at this time --> hgb goal >7 --> monitor for improvement # Thrombocytopenia - potentially related to infection --> hepatitis / hiv ordered --> plt goal >100k --> meds reviewed # KIM on CKD --> meds have been changed, off thiazide now # Near syncope -- potentially related to meds v underlying cardiac disorder --> as per cards recs # UTI (urinary tract infection) - on abx # Weakness Greatly appreciate consultation! Subjective Constitutional: Denies: no symptoms, chills, diaphoresis, fever, malaise, weakness, other HEENT: Denies: no symptoms, eye pain, blurred vision, tearing, double vision, ear pain, ear discharge, nose pain, nose congestion, throat pain, throat swelling, mouth pain, mouth swelling, other Cardiovascular: Denies: no symptoms, chest pain, edema, irregular heart rate, lightheadedness, palpitations, syncope, other Respiratory: Denies: no symptoms, cough, orthopnea, shortness of breath, SOB with excertion, SOB at rest, sputum, stridor, wheezing, other Genitourinary: Denies: no symptoms, burning, discharge, frequency, flank pain, hematuria, incontinence, pain, urgency, other Neurologic/Psychiatric: Denies: no symptoms, anxiety, depressed, emotional problems, headache, numbness, paresthesia, pre-existing deficit, seizure, tingling, tremors, weakness, other Endocrine: Denies: no symptoms, excessive sweating, flushing, intolerance to cold, intolerance to heat, increased hunger, increased thirst, increased urine, unexplained weight gain, unexplained weight loss, other Hematologic/Lymphatic: Denies: no symptoms, anemia, easy bleeding, easy bruising, other Allergies: Coded Allergies: No Known Allergies (Unverified , 01/22/18) Subjective no fevers, chills, cbc reviewed, sleeping otherwise Objective Last 24 Hour Vital Signs Date Time Temp Pulse Resp B/P (MAP) Pulse Ox O2 Delivery O2 Flow Rate FiO2 01/24/18 04:00 98.1 78 19 143/49 (80) 99 01/24/18 04:00 71 01/24/18 00:00 69 01/24/18 00:00 97.8 71 20 156/56 (89) 100 01/23/18 21:00 Room Air 01/23/18 20:00 62 01/23/18 20:00 98.1 62 22 129/46 (73) 99 01/23/18 16:00 71 01/23/18 16:00 97.1 65 16 143/64 (90) 100 01/23/18 12:00 97.3 65 16 124/54 (77) 100 01/23/18 12:00 66 01/23/18 09:00 Room Air 01/23/18 08:00 73 01/23/18 08:00 98.4 75 16 136/58 (84) 99 Intake and Output 01/23/18 01/24/18 19:00 07:00 Intake Total 360 ml Output Total 800 ml Balance -440 ml Intake Oral 360 ml Output Urine Total 800 ml # Voids 2 Laboratory Tests 01/23/18 06:46: White Blood Count 5.8, Red Blood Count 3.82L, Hemoglobin 10.3L, Hematocrit 30.9L , Mean Corpuscular Volume 81, Mean Corpuscular Hemoglobin 26.9L, Mean Corpuscular Hemoglobin Concent 33.2, Red Cell Distribution Width 13.6, Platelet Count 155, Mean Platelet Volume 7.3, Neutrophils (%) (Auto) , Lymphocytes (%) ( Auto) , Monocytes (%) (Auto) , Eosinophils (%) (Auto) , Basophils (%) (Auto) , Differential Total Cells Counted 100, Neutrophils % (Manual) 62, Lymphocytes % ( Manual) 24, Monocytes % (Manual) 9, Eosinophils % (Manual) 5H, Basophils % ( Manual) 0, Band Neutrophils 0, Other Cell Type Pathologist comment, Platelet Estimate Adequate, Platelet Morphology Normal, Hypochromasia 1+, Anisocytosis 1+ , Reticulocyte Count 1.6, Sickle Cell Screen [Pending], Fibrinogen 478H, Uric Acid 8.9H, Iron Level 40L, Total Iron Binding Capacity 116L, Percent Iron Saturation 34, Unsaturated Iron Binding 76L, Ferritin 938H, Troponin I 0.007, Pro-B-Type Natriuretic Peptide 1862H, Vitamin B12 Level 413, Folate 11.9, Homocystine [Pending], Thyroid Stimulating Hormone (TSH) 1.899 01/24/18 05:20: White Blood Count 5.6, Red Blood Count 3.73L, Hemoglobin 10.0L, Hematocrit 30.2L , Mean Corpuscular Volume 81, Mean Corpuscular Hemoglobin 26.8L, Mean Corpuscular Hemoglobin Concent 33.0, Red Cell Distribution Width 13.4, Platelet Count 143L, Mean Platelet Volume 7.2, Neutrophils (%) (Auto) 51.5, Lymphocytes ( %) (Auto) 32.8, Monocytes (%) (Auto) 8.9, Eosinophils (%) (Auto) 5.6H, Basophils (%) (Auto) 1.1 Height (Feet): 5 Height (Inches): 4.00 Weight (Pounds): 170 General Appearance: no apparent distress EENT: TMs normal Neck: supple Cardiovascular: regular rhythm Respiratory/Chest: lungs clear Abdomen: no organomegaly Extremities: normal range of motion Edema: 1+ Leg (L), 1+ Leg (R) Edema: mild edema Neurologic: alert Skin: warm/dry Omari Machuca MD Jan 24, 2018 05:59
[2018-01-24] MEDS: Aspirin Baby 81mg ORAL SCH (08:05)
[2018-01-24] MEDS ORDERED: Triamterene/Hctz 37.5/25 cap ORAL SCH (09:00)
[2018-01-24] MEDS: cefTRIAXone 1 GM in D5W 55 ML IVPB SCH (13:21)
[2018-01-24] MEDS: Montelukast 10mg tablet ORAL SCH (16:15)
--- NOTE | 2018-01-24 22:56 | General Progress Note ---
Assessment/Plan Problem List: (1) Anxiety and depression ICD Codes: F41.9 - Anxiety disorder, unspecified; F32.9 - Major depressive disorder, single episode, unspecified SNOMED: 21271309, [id number] Status: doing well, stable, progressing Assessment/Plan ativan prn provided st/ro Subjective Neurologic/Psychiatric: Reports: anxiety, depressed Allergies: Coded Allergies: No Known Allergies (Unverified , 01/22/18) Objective Last 24 Hour Vital Signs Date Time Temp Pulse Resp B/P (MAP) Pulse Ox O2 Delivery O2 Flow Rate FiO2 01/24/18 21:00 Room Air 01/24/18 20:00 67 01/24/18 20:00 96.8 72 18 134/54 (80) 98 01/24/18 16:00 74 01/24/18 16:00 97.4 68 21 142/48 (79) 99 01/24/18 12:00 97.5 69 20 144/77 (99) 99 01/24/18 12:00 56 01/24/18 08:47 Room Air 01/24/18 08:00 97.1 72 20 140/52 (81) 98 01/24/18 08:00 86 01/24/18 04:00 98.1 78 19 143/49 (80) 99 01/24/18 04:00 71 01/24/18 00:00 69 01/24/18 00:00 97.8 71 20 156/56 (89) 100 Intake and Output 01/23/18 01/24/18 18:59 06:59 Intake Total 360 ml Output Total 800 ml 600 ml Balance -440 ml -600 ml Intake Oral 360 ml Output Urine Total 800 ml 600 ml # Voids 2 Laboratory Tests 01/24/18 05:20: White Blood Count 5.6, Red Blood Count 3.73L, Hemoglobin 10.0L, Hematocrit 30.2L , Mean Corpuscular Volume 81, Mean Corpuscular Hemoglobin 26.8L, Mean Corpuscular Hemoglobin Concent 33.0, Red Cell Distribution Width 13.4, Platelet Count 143L, Mean Platelet Volume 7.2, Neutrophils (%) (Auto) 51.5, Lymphocytes ( %) (Auto) 32.8, Monocytes (%) (Auto) 8.9, Eosinophils (%) (Auto) 5.6H, Basophils (%) (Auto) 1.1, Hepatitis A IgM Antibody [Pending], Hepatitis B Surface Antigen [Pending], Hepatitis B Core IgM Antibody [Pending], Hepatitis C Antibody [Pending] 01/24/18 05:40: HIV (1&2) Antibody Rapid Negative Height (Feet): 5 Height (Inches): 4.00 Weight (Pounds): 207 General Appearance: no apparent distress, alert Nichole Fox MD Jan 24, 2018 22:56
[2018-01-24] MEDS ORDERED: Zolpidem 5mg tab ORAL PRN (23:00)
--- NOTE | 2018-01-24 23:30 | Progress Note ---
SUBJECTIVE: The patient is an 87-year-old female, currently in bed, comfortable, not feeling dizziness, and in no distress, and has been set on the bedside by physical therapy. OBJECTIVE: VITAL SIGNS: Her current blood pressure is 144/77, pulse 69, respirations 20, and temperature 97.5. HEENT: NAD. Mild JVD. CHEST: Bilaterally clear. CARDIOVASCULAR: rhythm. No gallop. No murmur. ABDOMEN: Soft. EXTREMITIES: No CCE. NEUROLOGIC: Generalized weakness. GENITOURINARY: Deferred. LABORATORY DATA: White count is 5.6, hemoglobin 10, hematocrit 30, and platelets are 143,000. Chemistry panel, there is no BNP today. The drug screen is positive. BNP was 1862 yesterday. The patient is asymptomatic. ASSESSMENT: 1. Congestive heart failure. 2. Syncope. 3. Dizziness. 4. Hypertension. PLAN: We will continue current treatment. The patient is on Singulair and ceftriaxone for urinary tract infection. Continue Lasix, aspirin, PPI, tramadol, and PT and OT. Discharge plan to home tomorrow. I discussed with charge nurse and patient. Aaron Ocampo M.D. DR: WILLIAM JOB#: [id number] CC:
--- NOTE | 2018-01-24 23:30 | Consultation ---
DATE OF CONSULTATION: 01/24/2018 INFECTIOUS DISEASES CONSULTATION CONSULTING PHYSICIAN: Valencia Lane M.D. REASON FOR CONSULTATION: Urinary tract infection of mixed organism, recommendation for antimicrobial treatment. REQUESTING PHYSICIAN: Lai Ocampo M.D. HISTORY OF PRESENT ILLNESS: The patient is an 87-year-old female with past medical history of congestive heart failure, kidney failure, hyperlipidemia, and hypertension, who presented to [facility] with lightheadedness, dizziness, and feeling near-syncope. The patient had no chest pain or palpitation. No back pain. The patient had previous injury, unclear whether it was due to fall or not, but she has not been able to ambulate as normal. Sometimes, she gets some help while she is at home. The patient recently had increased problem moving her walker and she had another episode of lightheadedness. Denied any fever or chills. Denied any recent travel or sick contact. The patient was found to have urinary tract infection as part of her workup in the emergency room, so she was started on ceftriaxone. Urine culture showed mixed gram-positive organism, so Infectious Disease consultation was requested for antibiotics treatment and further management. REVIEW OF SYSTEMS: Fourteen point of system reviewed were all negative apart from the one I mentioned above in my H and P. PAST MEDICAL HISTORY: Significant for CHF, chronic kidney disease, hyperlipidemia, and hypertension. PAST SURGICAL HISTORY: Not on record. FAMILY HISTORY: Not contributory. 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 No recent drugs, tobacco, or alcohol. ALLERGIES: She has no known drug allergy. MEDICATIONS: She is on ceftriaxone 1 g IV q.24 h. LABORATORY AND DIAGNOSTIC DATA: Showed white count of 5.6, hemoglobin of 10, platelet count of 143,000. BUN of 31, creatinine of 1.4. AST of 24, ALT of 9. Urinalysis showed +2 leukocyte esterase, wbc 10-15, and few bacteria. Serology showed negative screening for HIV rapid test and hepatitis panel pending. Microbiology, urine culture showed mixed gram-positive organism. Imaging, chest x-ray on admission showed no acute disease. PHYSICAL EXAMINATION: VITAL SIGNS: Temperature 97.5, pulse 69, cardiac rate 56, respirations 20, blood pressure 144/77, and saturation 99% on room air. GENERAL: An elderly female, obese, lying in bed, awake, comfortable, not in distress. HEENT: Normocephalic and atraumatic. Pupils reactive to light. Moist oral mucosa. No exudate. NECK: Supple. No JVD. CARDIOVASCULAR: Regular rate and rhythm. No murmur. LUNGS: Clear bilaterally. No wheezing or rhonchi. Diminished breathing sounds at the bases. ABDOMEN: Soft, obese, nontender, and nondistended. Normal bowel sounds. No hepatosplenomegaly. EXTREMITIES: No edema or cyanosis. SKIN: Mild skin break on the sacrum. No rash or hives. ASSESSMENT AND RECOMMENDATION: 1. UTI with mixed gram-positive organism. Continue ceftriaxone for now pending urine culture result. We will deescalate antibiotics as per culture. 2. Acute encephalopathy, present on admission. Might be due to UTI versus metabolic. Continue hydration and antibiotics. Monitor in telemetry. 3. Weakness, difficulty ambulation. Recommend PT/OT for evaluation. 4. Chronic kidney disease. Monitor renal function. Avoid nephrotoxic medicine. Thank you for the consult. ID will continue to follow. Valencia Lane M.D. DR: CUONG JOB#: [id number] CC:
[2018-01-25] VITALS: BP 169/61
[2018-01-25] MEDS: LORazepam 0.5mg tab ORAL PRN ×2 (00:12→16:37)
[2018-01-25] MEDS ORDERED: traMADol 50mg tab ORAL PRN (01:15)
[2018-01-25 04:00] VITALS: BP 140/50
[2018-01-25 05:54] LABS: BASOPHILS % (AUTO) 0.9 % (0.0-2.0); EOSINOPHILS % (AUTO) 5.8 % (0.0-3.0); HEMATOCRIT 30.5 % (37.0-47.0); HEMOGLOBIN 10.1 G/DL (12.0-16.0); LYMPHOCYTES % (AUTO) 32.5 % (20.0-45.0); MEAN CORPUSCULAR VOLUME 81 FL (80-99); MONOCYTES % (AUTO) 9.2 % (1.0-10.0); NEUTROPHILS % (AUTO) 51.5 % (45.0-75.0); PLATELET COUNT 157 K/UL (150-450); RED BLOOD COUNT 3.78 M/UL (4.20-5.40); RED CELL DISTRIBUTION WIDTH 13.9 % (11.6-14.8); WHITE BLOOD COUNT 5.1 K/UL (4.8-10.8)
[2018-01-25 08:00] VITALS: BP 146/50
[2018-01-25] MEDS ORDERED: Triamterene/Hctz 37.5/25 cap ORAL SCH (09:00)
[2018-01-25] MEDS ORDERED: Aspirin Baby 81mg ORAL SCH (09:00)
--- NOTE | 2018-01-25 10:36 | General Progress Note ---
Assessment/Plan Assessment/Plan # Anemia of chronic disease -- anemia panel has been reviewed and ferritin >900 , iron is low and % sat low as well --> peripheral smear has been reviewed as well --> trend cbc daily as needed --> does not require iron or epo at this time --> hgb goal >7 --> monitor for improvement # Thrombocytopenia - potentially related to infection --> hepatitis / hiv is negative --> plt goal >100k --> meds have been reviewed # KIM on CKD --> meds have been changed, off thiazide now # Near syncope -- potentially related to meds v underlying cardiac disorder --> as per cards recs # UTI (urinary tract infection) - on abx # Weakness Greatly appreciate consultation! Subjective Constitutional: Denies: no symptoms, chills, diaphoresis, fever, malaise, weakness, other HEENT: Denies: no symptoms, eye pain, blurred vision, tearing, double vision, ear pain, ear discharge, nose pain, nose congestion, throat pain, throat swelling, mouth pain, mouth swelling, other Cardiovascular: Denies: no symptoms, chest pain, edema, irregular heart rate, lightheadedness, palpitations, syncope, other Gastrointestinal/Abdominal: Denies: no symptoms, abdomen distended, abdominal pain, black stools, tarry stools, blood in stool, constipated, diarrhea, difficulty swallowing, nausea, poor appetite, poor fluid intake, rectal bleeding , vomiting, other Genitourinary: Denies: no symptoms, burning, discharge, frequency, flank pain, hematuria, incontinence, pain, urgency, other Neurologic/Psychiatric: Denies: no symptoms, anxiety, depressed, emotional problems, headache, numbness, paresthesia, pre-existing deficit, seizure, tingling, tremors, weakness, other Allergies: Coded Allergies: No Known Allergies (Unverified , 01/22/18) Subjective no fevers, chills, bp remains high, getting pt/ot Objective Last 24 Hour Vital Signs Date Time Temp Pulse Resp B/P (MAP) Pulse Ox O2 Delivery O2 Flow Rate FiO2 01/25/18 09:00 Room Air 01/25/18 08:00 97.7 69 19 146/50 (82) 100 01/25/18 04:00 97.2 64 20 140/50 (80) 99 01/25/18 00:00 97.6 65 20 169/61 (97) 100 01/24/18 22:00 97.7 70 18 148/56 (86) 100 01/24/18 21:00 Room Air 01/24/18 20:00 67 01/24/18 20:00 96.8 72 18 134/54 (80) 98 01/24/18 16:00 74 01/24/18 16:00 97.4 68 21 142/48 (79) 99 01/24/18 12:00 97.5 69 20 144/77 (99) 99 01/24/18 12:00 56 Intake and Output 01/24/18 01/25/18 19:00 07:00 Intake Total 650 ml 240 ml Output Total 700 ml Balance 650 ml -460 ml Intake Oral 540 ml 240 ml IV Total 110 ml Output Urine Total 700 ml # Voids 3 Laboratory Tests 01/25/18 05:10: White Blood Count 5.1, Red Blood Count 3.78L, Hemoglobin 10.1L, Hematocrit 30.5L , Mean Corpuscular Volume 81, Mean Corpuscular Hemoglobin 26.6L, Mean Corpuscular Hemoglobin Concent 32.9, Red Cell Distribution Width 13.9, Platelet Count 157, Mean Platelet Volume 8.0, Neutrophils (%) (Auto) 51.5, Lymphocytes (% ) (Auto) 32.5, Monocytes (%) (Auto) 9.2, Eosinophils (%) (Auto) 5.8H, Basophils (%) (Auto) 0.9 Height (Feet): 5 Height (Inches): 4.00 Weight (Pounds): 207 General Appearance: alert EENT: TMs normal Neck: normal alignment Cardiovascular: normal rate Respiratory/Chest: normal breath sounds Abdomen: no organomegaly Extremities: non-tender Edema: 1+ Leg (L), 1+ Leg (R) Edema: mild edema Neurologic: alert Skin: warm/dry Omari Machuca MD Jan 25, 2018 10:36
[2018-01-25 12:00] VITALS: BP 146/49
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
[2018-01-25] MEDS ORDERED: cefTRIAXone 1 GM in D5W 55 ML IVPB SCH (14:00)
--- NOTE | 2018-01-25 15:01 | Infectious Diseases Prog Note ---
Assessment/Plan Problems: (1) UTI (urinary tract infection) Assessment & Plan: with culture grew small colony of mixed organisms , most likely contaminants, recommend to stop antibiotics (2) Near syncope Assessment & Plan: continue tele monitor, cardiology is following (3) Weakness Assessment & Plan: continue PT/OT may need rehab Subjective Constitutional: Reports: no symptoms HEENT: Reports: no symptoms Respiratory: Reports: no symptoms Breasts: Reports: no symptoms Cardiovascular: Reports: no symptoms Gastrointestinal/Abdominal: Reports: no symptoms Genitourinary: Reports: no symptoms Neurologic: Reports: no symptoms Psychiatric: Reports: no symptoms Skin: Reports: no symptoms Endocrine: Reports: no symptoms Hematologic: Reports: no symptoms Musculoskeletal: Reports: no symptoms Allergies: Coded Allergies: No Known Allergies (Unverified , 01/22/18) Subjective she was up in bed, feels better awake and alert, NAD Objective Vital Signs Last 24 Hour Vital Signs Date Time Temp Pulse Resp B/P (MAP) Pulse Ox O2 Delivery O2 Flow Rate FiO2 01/25/18 12:00 97.4 67 20 146/49 (81) 99 01/25/18 09:00 Room Air 01/25/18 08:00 97.7 69 19 146/50 (82) 100 01/25/18 04:00 97.2 64 20 140/50 (80) 99 01/25/18 00:00 97.6 65 20 169/61 (97) 100 01/24/18 22:00 97.7 70 18 148/56 (86) 100 01/24/18 21:00 Room Air 01/24/18 20:00 67 01/24/18 20:00 96.8 72 18 134/54 (80) 98 01/24/18 16:00 74 01/24/18 16:00 97.4 68 21 142/48 (79) 99 Height (Feet): 5 Height (Inches): 4.00 Weight (Pounds): 207 General Appearance: WD/WN, no acute distress HEENT: normocephalic, atraumatic, anicteric, mucous membranes moist, PERRL, EOMI, pharynx normal, supple, no JVD Respiratory/Chest: chest wall non-tender, lungs clear, normal breath sounds, no respiratory distress, no accessory muscle use Cardiovascular: normal peripheral pulses, normal rate, regular rhythm, no gallop/murmur, no JVD Abdomen: normal bowel sounds, soft, non tender, no organomegaly, non distended , no mass, no scars Extremities: no cyanosis, no clubbing Skin: no rash, no lesions, no ulcers Neurologic/Psychiatric: alert, oriented x 3, responsive Lymphatic: no neck adenopathy, no groin adenopathy Musculoskeletal: normal muscle bulk, no effusion Laboratory Tests Test 01/25/18 05:10 White Blood Count 5.1 K/UL (4.8-10.8) Red Blood Count 3.78 M/UL (4.20-5.40) L Hemoglobin 10.1 G/DL (12.0-16.0) L Hematocrit 30.5 % (37.0-47.0) L Mean Corpuscular Volume 81 FL (80-99) Mean Corpuscular Hemoglobin 26.6 PG (27.0-31.0) L Mean Corpuscular Hemoglobin Concent 32.9 G/DL (32.0-36.0) Red Cell Distribution Width 13.9 % (11.6-14.8) Platelet Count 157 K/UL (150-450) Mean Platelet Volume 8.0 FL (6.5-10.1) Neutrophils (%) (Auto) 51.5 % (45.0-75.0) Lymphocytes (%) (Auto) 32.5 % (20.0-45.0) Monocytes (%) (Auto) 9.2 % (1.0-10.0) Eosinophils (%) (Auto) 5.8 % (0.0-3.0) H Basophils (%) (Auto) 0.9 % (0.0-2.0) Current Medications Medications (Trade) Dose Ordered Sig/Arturo Route PRN Reason Start Time Stop Time Status Last Admin Dose Admin Acetaminophen (Tylenol) 650 mg Q4H PRN ORAL Fever/Headache/Mild Pain 01/25/18 01:15 02/21/18 17:06 Aspirin (ASA) 81 mg DAILY ORAL 01/25/18 09:00 02/22/18 08:59 01/25/18 09:34 Ceftriaxone Sodium 1 gm/ Dextrose 55 ml @ 110 mls/hr Q24H IVPB 01/25/18 14:00 01/30/18 13:59 01/25/18 14:26 Lorazepam (Ativan) 1 mg Q6H PRN ORAL For Anxiety 01/24/18 23:15 01/30/18 23:14 01/25/18 00:12 Mirtazapine (Remeron) 7.5 mg BEDTIME ORAL 01/25/18 21:00 02/24/18 20:59 Montelukast Sodium (Singulair) 10 mg QPM ORAL 01/25/18 16:30 02/22/18 16:29 Pantoprazole (Protonix) 40 mg DAILY ORAL 01/25/18 09:00 02/22/18 08:59 01/25/18 09:34 Potassium Chloride (K-Dur) 10 meq DAILY ORAL 01/25/18 09:00 02/22/18 08:59 01/25/18 09:34 Tramadol HCl (Ultram) 50 mg Q8H PRN ORAL For Moderate Pain(4-6) 01/25/18 01:15 01/29/18 17:08 Triamterene/HCTZ (Dyazide) 1 cap DAILY ORAL 01/25/18 09:00 02/23/18 08:59 01/25/18 09:34 Zolpidem Tartrate (Ambien) 5 mg HSPRN PRN ORAL Insomnia 01/24/18 23:00 01/30/18 22:[address] M.D. Jan 25, 2018 15:01
[2018-01-25 16:00] VITALS: BP 164/77
[2018-01-25] MEDS ORDERED: Montelukast 10mg tablet ORAL SCH (16:30)
--- NOTE | 2018-01-25 23:00 | Discharge Summary ---
DATE OF ADMISSION: 01/22/2018 DATE OF DISCHARGE: 01/25/2018 HISTORY: This is an elderly female, who came to the emergency room for having syncopal episode and generalized weakness. The patient's workup was negative. Cardiology consult was obtained. The patient was clinically doing much better and going to go back to the intermediate with home health. ACTIVITY: Mostly, the patient is bedridden. DIET: She is on regular 2 g sodium diet. DISCHARGE MEDICATIONS: The patient was recommended to continue home medications. FOLLOWUP: Follow up as an outpatient with primary care. Aaron Ocampo M.D. DR: TINY JOB#: [id number] CC:
--- NOTE | 2018-01-26 10:51 | Discharge Summary ---
Discharge Summary Hospital Course Date of Admission Jan 22, 2018 at 11:30 Date of Discharge Jan 25, 2018 at 19:56 Admitting Diagnosis NEAR SYNCOPE LIS Santamaria is a 87 year old female who was admitted on Jan 22, 2018 at 11: 30 for Near Syncope Hospital Course Discharge Diagnoses: 1. Congestive diastolic heart failure. 2. Near syncope likely due to hypotensive effects of nitroglycerin 3. Dizziness. 4. Hypertension. 5. UTI with culture grew small colony of mixed organisms , most likely contaminants 6. Weakness 7. Anemia of chronic disease 8. Thrombocytopenia 9. KIM on CKD -I have been assigned to complete a DC summary on this account, I was not involved with the patient management.-Kenisha Lam NP-- Discharge Discharge Disposition Patient was discharged to Home with Home Health(06) Anita Lam NP Jan 26, 2018 10:51
== END 2018-01-25 19:56 | disposition home health service (06) | DRG 291 ==
LOC: EDBD 10:46 → EMR 11:25 → 2E 11:30 → EDBEDREQ 11:58 → 3E 01-24 21:57
DX: I13.0 Hypertensive heart and chronic kidney disease with heart failure and stage 1 through stage 4 chronic kidney disease, or unspecified chronic kidney disease (principal); N18.6 End stage renal disease; N17.9 Acute kidney failure, unspecified; N39.0 Urinary tract infection, site not specified; I50.30 Unspecified diastolic (congestive) heart failure; E86.1 Hypovolemia; R55 Syncope and collapse; T46.3X5A Adverse effect of coronary vasodilators, initial encounter; D63.8 Anemia in other chronic diseases classified elsewhere; D69.6 Thrombocytopenia, unspecified; K21.9 Gastro-esophageal reflux disease without esophagitis; Z99.2 Dependence on renal dialysis; I73.9 Peripheral vascular disease, unspecified; E78.5 Hyperlipidemia, unspecified; F41.8 Other specified anxiety disorders; D73.5 Infarction of spleen; R42 Dizziness and giddiness
CPT/HCPCS: 36415; 71045; 80053; 81003; 82550; 82553; 82607; 82728; 82746; 83090; 83540; 83550; 83880; 84443; 84484; 84550; 85007; 85025; 85044; 85060; 85384; 85660; 86703; 86705; 86709; 86803; 87086; 87340; 93005; 93306; 96365; 99285